=== PATIENT | male | born 1990 | race Two or more races ===

== ENCOUNTER 2019-08-31 14:20 | Emergency (ER) | payer SELFPAY ==
[2019-08-31 15:24] VITALS: BP 134/79
[2019-08-31] MEDS ORDERED: TETANUS-DIPTH-ACEL PERTUSSIS 0.5ML SYR Tdap IM ONE (16:00)
== END 2019-08-31 16:36 | disposition home or self-care (01) ==
LOC: ER 14:26
DX: S61.305A Unspecified open wound of left ring finger with damage to nail, initial encounter (principal); W54.0XXA Bitten by dog, initial encounter; Y93.89 Activity, other specified; Y92.89 Other specified places as the place of occurrence of the external cause; Y99.8 Other external cause status
CPT/HCPCS: 73130; 90471; 90715